=== PATIENT | male | born 1980 | race Caucasian/White ===

== ENCOUNTER 2016-11-07 21:58 | Emergency (ER) | payer BC ==
[~2016-11-07] VITALS: Ht 182.9 cm; Wt 170.5 kg
[~2016-11-07 21:58] MED LIST: ALEVE PO; BACTRIM DS 8001 TAB PO; LORTAB 5/500 501 TAB PO; NEXIUM 20MG20 MG PO; NO HOME MEDICATIONS; PRIL40 PO; PRINIVIL20 MG PO; PRINZIDE 25 MG-1 TAB PO; REGLAN 10MG10 MG/TAB PO; ULTRAM 50MG TAB50 MG PO; ZANTAC 150MG T150 MG PO; ZOFRAN ODT4 MG PO
[2016-11-07 22:01] VITALS: BP 158/95; PULSE 100; TEMP 99.1
[2016-11-07] MEDS ORDERED: BACTRIM DS 8001 TAB PO (22:56)
== END 2016-11-07 23:10 | disposition home or self-care (01) ==
LOC: COL.ER 21:58
DX: S61.012A Laceration without foreign body of left thumb without damage to nail, initial encounter (principal); Z86.14 Personal history of Methicillin resistant Staphylococcus aureus infection; W26.0XXA Contact with knife, initial encounter

== ENCOUNTER 2016-11-15 17:08 | Emergency (ER) | payer BC ==
[2016-11-15 17:10] VITALS: BP 153/66; PULSE 98; TEMP 98.9
== END 2016-11-15 17:14 | disposition home or self-care (01) ==
LOC: COL.ER 17:08
DX: Z48.02 Encounter for removal of sutures (principal)